=== PATIENT | female | born 1985 | race Two or more races ===

== ENCOUNTER 2017-10-12 10:46 | Emergency (ER) | payer SELFPAY | END 2017-10-12 13:30 | disposition home or self-care (01) | LOC: ER 10:46 | DX: S83.92XA Sprain of unspecified site of left knee, initial encounter (principal); X58.XXXA Exposure to other specified factors, initial encounter; Y93.66 Activity, soccer; Y92.89 Other specified places as the place of occurrence of the external cause; Y99.8 Other external cause status | CPT/HCPCS: 73564; 99284-25 ==